=== PATIENT | female | born 2000 | race Hispanic/Latino ===

== ENCOUNTER 2018-09-09 21:39 | Emergency (ER) | payer OTHER ==
[2018-09-09] MEDS ORDERED: Fluorescein Opthalmic Strip ONE (21:49)
[2018-09-09] MEDS ORDERED: HYDROcodone/Acetaminophen 5/325 mg Tablet ONE (21:59)
[2018-09-09] MEDS ORDERED: Tobramycin Sulfate 0.3% Ophth Susp 5 ml Bottle ONE (22:35)
[2018-09-09] MEDS ORDERED: Gentamicin Ophth Soln 0.3% 5 ml Bottle ONE (22:35)
== END 2018-09-09 22:50 | disposition home or self-care (01) ==
LOC: BURERS 21:39
DX: T15.02XA Foreign body in cornea, left eye, initial encounter (principal)
CPT/HCPCS: 99283